=== PATIENT | female | born 2000 | race Caucasian/White ===

== ENCOUNTER 2021-09-16 07:07 | Outpatient (CLI) | payer BC, SELFPAY ==
[2021-09-16 08:44] LABS: ALB/GLOB Ratio 1.1 RATIO (0.9-2.4); AST(SGOT) 18 U/L (15-37); Alanine Aminotransfer ALT/SGPT 17 U/L (13-56); Albumin, Serum 3.9 g/dL (3.2-5.0); Alkaline Phosphatase 85 U/L (45-117); Anion Gap 3 (5-15); BUN 14 mg/dL (7-18); BUN/Creat Ratio 21.5 RATIO (10-20); Calcium,Total 9.1 mg/dL (8.5-10.1); Chloride 109 mmol/L (98-107); Creatinine, Serum 0.65 mg/dL (0.55-1.02); EST Glomerular Filtration Rate 124 mL/min (>60); Est Glom Filt Rate - Afr Amer 150 mL/min (>60); Globulin 3.5 g/dL (2.2-4.2); Glucose 92 mg/dL (74-106); Luteinizing Hormone 8.4 mIU/mL; Potassium 3.7 mmol/L (3.5-5.1); Protein, Total 7.4 g/dL (6.4-8.2); Sodium Level 139 mmol/L (136-145); T4 Free Direct 1.11 ng/dL (0.76-1.46); Thyroid Stim Hormone (TSH) 6.63 uIU/mL (0.358-3.74)
[2021-09-18 08:28] LABS: Insulin 13.2 mU/L (2.6-37.6)
[2021-09-22 22:14] LABS: Androstenedione 159 ng/dL (41-262); Testosterone Free 2.7 pg/mL (Not Estab.)
== END 2021-09-16 23:59 | disposition home or self-care (01) ==
PROVIDERS: Visit Provider Internal Medicine Endocrinology, Diabetes & Metabolism
DX: E06.3 Autoimmune thyroiditis (principal); E16.9 Disorder of pancreatic internal secretion, unspecified; E28.2 Polycystic ovarian syndrome
CPT/HCPCS: 36415; 80053; 82157; 82627; 83001; 83002; 83036; 83525; 84402; 84439; 84443; 82626

== ENCOUNTER 2022-08-31 16:57 | Emergency (ER) | payer BC, SELFPAY ==
[2022-08-31 16:58] VITALS: BP 132/87; PULSE 85; RESP 14; TEMP 36.1; O2SAT 96; BMI 37.2
[2022-08-31 21:06] VITALS: BP 146/67; PULSE 77; RESP 16; O2SAT 100
--- NOTE | 2022-08-31 21:07 | EX.ED.DYSGE1 ---
HPI History of Present Illness Chief Complaint: Bite Informant: patient Narrative Narrative: Awaking to bat in the room. She lives in dorm single person room. No areas of pain. No history of similar. History of hypothyroidism. No allergies. Prior similar symptoms: No PFSH PFSH Allergy/AdvReac Type Severity Reaction Status Date / Time No Known Allergies Allergy Verified 08/31/22 16:58 ROS ROS ED Constitutional Constitutional ED: Denies chills, fever(s) or sweats Eyes Eyes: Denies change in vision ENT ENT ED: Denies dysphagia or sore throat Cardiovascular Cardiovascular: Denies chest pain, leg edema, palpitations or racing heartbeat Respiratory/Chest Respiratory/Chest: Denies cough, dyspnea or dyspnea on exertion Gastrointestinal Gastrointestinal: Denies abdominal pain, diarrhea, nausea or vomiting Genitourinary Genitourinary ED: Denies dysuria, hematuria or urinary frequency Musculoskeletal Musculoskeletal: Denies back pain, extremity pain or neck pain Integumentary Denies rash or wounds Neurologic Neurologic: Denies headache(s), paresthesias or weakness EXAM Physical Exam Const Vital Signs: 08/31/22 16:58 Temperature 97 F L Temperature Source Temporal Pulse Rate 85 Respiratory Rate 14 Blood Pressure 132/87 H Blood Pressure Mean 102 Pulse Ox 96 Oxygen Delivery Method Room Air Positive well nourished and well developed General Appearance ED: well developed and NAD HEENT Reports moist mucous membranes normocephalic and atraumatic Eyes PERRL, EOMs intact bilaterally and conjunctivae normal General Eye ED: Yes normal appearance of both eyes Neck no lymphadenopathy and supple General: Negative for tenderness Chest Wall Chest: Negative for tenderness Resp normal respiratory effort and normal air movement Effort and Inspection: symmetric chest movement; Negative for respiratory distress Cardio regular rate, regular rhythm and no murmurs Peripheral Pulses: pulses 2+ throughout GI normal to inspection, nondistended, normoactive bowel sounds and non-tender Palpation: Negative for guarding or rebound tenderness present Back/Spine no CVA tenderness and no thoracic nor lumbar tenderness Extremity normal to inspection General Extremety ED: Negative for edema or tenderness General Extremity: Negative for edema Neuro oriented x3 and no sensory deficits noted Sensorium / Orientation: awake and alert Skin no rashes or lesions noted and no wounds MDM MDM MDM Narrative Medical decision making narrative: Interventions / MDM: Differential diagnosis: Bat exposure, rabies exposure Diagnosis considered but do not suspect: N/A My EKG interpretation: N/A Imaging independently reviewed and interpreted by myself: N/A External documents reviewed: N/A Test considered but not ordered:N/A ED course: Nontoxic vital stable. Awaken to bat in the room. No pain elsewhere however recommendations with exposure is for rabies vaccination series and immunoglobulin. First treatment given the ED. She will return for day 09/18/2013 treatment. Re-evaluation: stable Disposition discussed with patient/family/significant other: Patient Case discussed with consulting clinician: N/A Discharge Plan Triage Chief Complaint: Bite ED Provider: Silvano Almaraz Dx/Rx/DC Orders Clinical Impression: Exposure to bat without known bite Instructions: Understanding Rabies Primary Care Provider: Haley Bird,Out of Referrals: Haley Bird,Out of [Primary Care Provider] - Activity Restrictions/Additional Instructions: Status post immunoglobulin treatment. Status post first dose of vaccination, return as planned for vaccination at day 3, 7, and 14 Disposition Disposition: Home, Self Care
[2022-08-31 21:10] VITALS: BP 123/74; PULSE 68; RESP 18; O2SAT 100
[2022-08-31] MEDS: Rabies Vaccine,Human Diploid 2.5 UNITS Vial IM (21:58)
[2022-08-31] MEDS: Rabies Immune Globulin/PF 300 UNIT/ML, 5 ML VIAL 1500 UNIT IM (22:03)
[2022-08-31] MEDS: Rabies Immune Globulin/PF 300 UNIT/ML, 1 ML VIAL 530 UNIT IM (22:08)
== END 2022-08-31 22:40 | disposition home or self-care (01) ==
PROVIDERS: Emergency Provider Emergency Medicine; Visit Provider Emergency Medicine
DX: Z20.3 Contact with and (suspected) exposure to rabies (principal); Z23 Encounter for immunization
CPT/HCPCS: 90375; 90675; 96372; 99282

== ENCOUNTER 2022-09-03 13:10 | Outpatient (CLI) | payer BC, SELFPAY ==
[2022-09-03 13:26] VITALS: BP 133/70; PULSE 72; RESP 16; TEMP 36.2; O2SAT 99; BMI 33.3
[2022-09-03] MEDS: Rabies Vaccine,Human Diploid 2.5 UNITS Vial IM (13:28)
== END 2022-09-03 13:42 | disposition home or self-care (01) ==
LOC: ED 13:42
DX: Z23 Encounter for immunization (principal)
CPT/HCPCS: 90675; 96372

== ENCOUNTER 2022-09-07 13:16 | Emergency (ER) | payer BC, SELFPAY ==
[2022-09-07 14:02] VITALS: BP 120/91; PULSE 62; BMI 33.3
[2022-09-07] MEDS: Rabies Vaccine,Human Diploid 2.5 UNITS Vial IM (14:04)
== END 2022-09-07 14:23 | disposition home or self-care (01) ==
DX: Z23 Encounter for immunization (principal)
CPT/HCPCS: 90675; 96372

== ENCOUNTER 2022-09-14 13:09 | Outpatient (CLI) | payer BC, SELFPAY ==
[2022-09-14 13:12] VITALS: BP 119/72; PULSE 78; RESP 18; TEMP 35.6; O2SAT 98; BMI 37.2
[2022-09-14] MEDS: Rabies Vaccine,Human Diploid 2.5 UNITS Vial IM (13:37)
== END 2022-09-14 14:54 | disposition home or self-care (01) ==
PROVIDERS: PCP Pediatrics
DX: Z23 Encounter for immunization (principal)
CPT/HCPCS: 90675; 96372